=== PATIENT | male | born 1965 | race Caucasian/White ===

== ENCOUNTER 2024-07-06 10:53 | Emergency (ER) | payer OTHER, SELFPAY ==
[2024-07-06 10:56] VITALS: BP 165/90
[2024-07-06 12:00] VITALS: BP 129/87
[2024-07-06] MEDS: TORADOL 15 MG IV (12:03)
[2024-07-06 12:07] LABS: % Basophils 0.8 % (0-2); % Eosinophils 2.3 % (0-6); % Immature Granulocytes 1.3 % (0-0.5); % Monocytes 6.2 % (1.7-9.3); % Neutrophils 60.4 % (42.2-75.2); Absolute Eosinophils 0.1 10^3/uL (0-0.7); Absolute Immature Granulocytes 0.1 10^3/uL (0-0.05); Absolute Lymphocytes 1.1 10^3/uL (1.2-3.4); Absolute Monocytes 0.2 10^3/uL (0.1-0.6); Absolute Neutrophils 2.4 10^3/uL (1.4-6.5); Hematocrit 42.2 % (39.0-52.0); Hemoglobin 15.3 g/dL (13.0-18.0); Mean Corp Hgb Conc. 36.3 g/dL (33.0-37.0); Mean Corpuscular Hgb 29.9 pg (27.0-31.0); Mean Corpuscular Volume 82.4 fL (80.0-94.0); Mean Platelet Volume 9.1 fL (7.4-10.4); Nucleated Red Blood Cells % 0 % (-); Platelet Count 154 10^3/uL (130-400); Red Blood Cell Count 5.12 10^6/uL (4.70-6.10); Red Cell Dist. Width 11.9 % (11.5-14.5); White Blood Cell Count 3.9 10^3/uL (4.8-10.8)
[2024-07-06 12:24] LABS: ALT (SGPT) 30 U/L (0-50); AST (SGOT) 28 U/L (17-59); Alkaline Phosphatase 54 U/L (38-126); Blood Urea Nitrogen 14 mg/dl (9-20); Calcium 9.4 mg/dl (8.4-10.2); Carbon Dioxide 32 mmol/L (22-30); Chloride 104 mmol/L (98-107); Creatine Phosphokinase 54 U/L (55-170); Glucose 102 mg/dl (70-99); Potassium 4.3 mmol/L (3.5-5.1); Sodium 142 mmol/L (135-145); Total Bilirubin 0.8 mg/dl (0.2-1.3); Total Protein 7.1 g/dl (6.3-8.2); eGFR > 60.00
--- NOTE | 2024-07-06 12:28 | ED.GENMED ---
History of Present Illness
General
Chief Complaint: Flank Pain
Source: patient
Exam Limitations: none
Time Seen by Provider: 07/06/24 11:41
Nursing documentation reviewed up to this point in time: agreed with
History of Present Illness
History of Present Illness:
58-year-old male with no reported chronic medical issues, prior surgical history of appendectomy who presents to the emergency room for evaluation of flank pain. Of note: patient started with URI symptoms last week was diagnosed with COVID. He
took Paxlovid for 2 days and stopped due to side effects. He says that for the past week while he has been dealing with COVID he has been having flank pain. He reports aching pain right flank radiates towards the right lower abdomen. No clear
triggering or relieving factors. Associated with nausea no vomiting. He has been constipated. He denies fevers or chills. No dysuria or hematuria noted although he says that at his PCPs office today they checked his urine and told him he had
hematuria. He says that primary referred him to the ER due to flank pain with hematuria on office visit today.
Past History
Past History
ED Past Medical History: Hypothyroidism
ED Past Surgical History: Appendectomy
Social History
Tobacco: Non-smoker
Alcohol: None
Drug: None
Personal:
Living: with family
Review of Systems
Review of Systems
All Other Systems: ROS reviewed and negative except as documented in HPI and ROS
Constitutional: Denies fever
Respiratory: Denies trouble breathing
Cardiac: Denies chest pain
ABD/GI: Reports abdominal pain, nausea and constipated; Denies vomiting or diarrhea
: Reports flank pain; Denies dysuria or bleeding
Musculoskeletal: Denies neck pain
Neurological: Denies headache
Phy Exam
Physical Exam
Physical Exam:
General: Awake, alert; no acute distress
Head: Normocephalic, atraumatic
Eyes: Conjunctiva normal, sclera anicteric
Throat: Airway intact, handling secretions
Neck: Trachea midline, supple without meningismus
Lungs: Clear to auscultation bilaterally, no wheezing, rales, rhonchi
Heart: Regular rate and rhythm, no murmurs, gallops, or rubs
Abd: Soft, non distended, mildly tender right mid abdomen, no palpable masses
Back: No CVA tenderness
Neuro: No gross deficits
Skin: no rash in area of concern
Extremities: Warm and well-perfused, no edema
Scores
Heart Failure Risk
Heart Failure Risk Score: Not Applicable
Heart Score for Chest Pain Patients
STEMI patient?: Not applicable
Withdrawal Assessment of Alcohol
Withdrawal Assessment Completed?: Not applicable
Course
Orders/Labs/Results
Orders:
Orders
07/06/24 11:44
CT Abd/pel Without Iv Or Oral Urgent
Comment:
Reason For Exam: right flank pain
07/06/24 11:49
Ketorolac [Toradol] 15 mg IV NOW STA
07/06/24 12:00
CPK [Creatine Phosphokinase] Urgent
Complete Blood Count/With Diff Urgent
Comprehensive Metabolic Panel Urgent
07/06/24 12:35
Urinalysis Reflex To Culture Urgent
Date Specimen was Collected: 07/06/24
Time Specimen was Collected: 12:34
Urine Microscopic Reflex Cult Urgent
Abnormal Lab Results
07/06/24 07/06/24
12:00 12:35
WBC 3.9 L 10^3/uL
(4.8-10.8)
Abs Immat Gran (auto) 0.1 H 10^3/uL
(0-0.05)
Absolute Lymphs (auto) 1.1 L 10^3/uL
(1.2-3.4)
Immature Gran % 1.3 H %
(0-0.5)
Carbon Dioxide 32 H mmol/L
(22-30)
Glucose 102 H mg/dl
(70-99)
Creatine Kinase 54 L U/L
(55-170)
Ur Occult Blood Reflex 1+ A
(Negative)
07/06/24 12:00
07/06/24 12:00
Vital Signs
Initial and Last Documented VS:
Initial Vital Signs
Temp Pulse Resp BP Pulse Ox
36.9 C 68 18 165/90 99
07/06/24 10:56 07/06/24 10:56 07/06/24 10:56 07/06/24 10:56 07/06/24 10:56
Last Documented Vital Signs
Temp Pulse Resp BP Pulse Ox
36.9 C 68 18 165/90 99
07/06/24 10:56 07/06/24 10:56 07/06/24 10:56 07/06/24 10:56 07/06/24 10:56
MDM/Problems Addressed
Differential Diagnosis Includes:
Nephrolithiasis, rhabdomyolysis, myalgias related to viral illness, cholelithiasis, viral hepatitis
MDM/Problems Addressed:
58-year-old male currently in the midst of COVID infection for the past week presents for evaluation of right flank pain for the past week. Apparently had hematuria on urinalysis in the office today and was referred to the ER for assessment.
Hypertensive otherwise normal vitals. Physical exam as above. Suspect likely myalgias related to viral illness. With positive blood reported in [facility] today will check CPK. Check CMP, urinalysis. Check CT abdomen pelvis. Treat symptomatically.
Reassess after the above.
Labs reviewed: CBC shows mild leukopenia in the setting of viral illness. CMP no clinically significant abnormalities. CPK was not markedly elevated. Urinalysis trace blood on dipstick. CT abdomen pelvis no acute pathology to account for
symptoms. Suspect likely viral illness with myalgias accounts for his back/flank pain. Stable for discharge with supportive care. Follow-up with PCP regarding trace hematuria. Patient comfortable with this plan. All questions answered.
Acute Exacerbation and/or Progression of Chronic Illness:
Acutely hypertensive without signs or symptoms of hypertensive emergency�no indication for emergent antihypertensive treatment
Acute Exacerbation and/or Progression of Chronic Illness: HTN
*Radiology
Radiology exam reviewed: radiology read reviewed
*Pulse Oximetry
Patient hypoxic: no
*Critical Care Note
Total Time (30-74mins, 75-104mins- exclusive of procedures): Not Applicable
Data Reviewed
Review of Other/Old Records Reveals: Labs and Records
Source: patient
ED Attending Note
-
Portions of this chart may have been created with voice recognition software.� Occasional wrong word or��sound alike� substitutions may have occurred due to the inherent limitations of voice recognition software.
Discharge Plan
Departure
Patient Disposition: Home (Routine Discharge)
Date of Disposition: 07/06/24
Time of Disposition: 13:12
Patient with high blood pressure during this ER visit?: Yes
Discharge Problem:
Flank pain, Hematuria, microscopic
Instructions: Flank Pain (DC)
Prescriptions:
No Action
docusate sodium [Dulcolax Stool Softener (dss)] 100 MG capsule
100 mg PO DAILY PRN (Reason: constipation) Qty: 20 0RF
levothyroxine 112 MCG tablet
112 mcg PO DAILY
sucralfate 1 GM/10 ML suspension
1 gm PO QID Qty: 400 0RF
Rx Instructions:
1 hour before meals and bedtime
omeprazole 40 MG capsule,delayed release(DR/EC)
40 mg PO DAILY Qty: 30 0RF
Referrals:
Cheyenne Duarte MD [Family Provider] - Follow up in 5-7 days
Activity Restrictions/Additional Instructions:
Thank you for visiting the Emergency Department at [facility].
1. Please schedule a follow up appointment as directed. Call first thing tomorrow morning to make an appointment.
2. If indicated, please take your medications as instructed and indicated on discharge paperwork.
3. If any of your symptoms do not improve, or persist, or become more severe within 6-12 hours, please return to the emergency department for further care.
4. Please return to the emergency department if you develop a headache, neck pain/stiffness, fever greater than 100.4F, chest pain, shortness of breath, persistent nausea, vomiting, slurred speech, difficulty walking, numbness/tingling, weakness,
signs of infection or any other symptoms that are worrisome to you.
Please call [phone] if you have any questions.
Interventions
Interventions:
*Risk Screen - Suicide Last Done: 07/06/24 10:56
*General Assessment Last Done: 07/06/24 10:56
*Neglect/Abuse Screening Last Done: 07/06/24 10:56
*ED COVID-19 Vaccine History Last Done: 07/06/24 10:56
Discharge Date and Time
Print Language: LAO
[2024-07-06 12:47] LABS: Urine Albumin Negative (Neg - Trace); Urine Bilirubin Negative (Negative); Urine Character Clear (Clear); Urine Color Yellow; Urine Glucose Negative (Negative); Urine Ketone Negative (Negative); Urine Leukocyte Negative (Negative); Urine Nitrite Negative (Negative); Urine Occult Blood 1+ (Negative); Urine Specific Gravity 1.005 (<1.030); Urine Urobilinogen Negative (Neg - 1+)
[2024-07-06 13:17] LABS: Urine Bacteria Few (Negative); Urine Red Blood Cell 0-2 /HPF (0-2); Urine Squamous Cell 0-2 /LPF (Few); Urine White Cell 0-2 /HPF (0-5)
== END 2024-07-06 13:30 | disposition home or self-care (01) ==
LOC: EMR 10:53
PROVIDERS: EMERGENCY PHYSICIAN Emergency Medicine; FAMILY PHYSICIAN Family Medicine
DX: R10.9 Unspecified abdominal pain (principal); R31.29 Other microscopic hematuria; U07.1 COVID-19; K59.00 Constipation, unspecified; E03.9 Hypothyroidism, unspecified
CPT/HCPCS: 99284; 96374; 74176; 80053; 81003; 81015; 82550; 85025

== ENCOUNTER → 2024-07-20 12:34 | Outpatient (REF) | payer OTHER, SELFPAY | LOC: HWRAD 12:34 | PROVIDERS: ATTENDING PHYSICIAN Physician Assistant; FAMILY PHYSICIAN Family Medicine | DX: R10.13 Epigastric pain (principal) | CPT/HCPCS: 76700 ==

== ENCOUNTER 2024-08-19 06:18 | Day surgery (SDC) | payer OTHER, SELFPAY | END 2024-08-19 11:56 | disposition home or self-care (01) | LOC: GI 06:18 | PROVIDERS: ATTENDING PHYSICIAN Internal Medicine | DX: R10.84 Generalized abdominal pain (principal); K44.9 Diaphragmatic hernia without obstruction or gangrene; K22.2 Esophageal obstruction; K63.5 Polyp of colon | CPT/HCPCS: 45385; 45380; 43239; 88305; 88342 ==

== ENCOUNTER 2025-01-28 14:14 | Emergency (ER) | payer OTHER, SELFPAY ==
[2025-01-28 14:24] VITALS: BP 144/80
[2025-01-28 14:45] LABS: Hematocrit 43.4 % (39.0-52.0); Hemoglobin 15.3 g/dL (13.0-18.0); Mean Corp Hgb Conc. 35.3 g/dL (33.0-37.0); Mean Corpuscular Volume 84.1 fL (80.0-94.0); Nucleated Red Blood Cells % 0 % (-); Platelet Count 172 10^3/uL (130-400); Red Cell Dist. Width 12.3 % (11.5-14.5)
[2025-01-28 14:57] LABS: ALT (SGPT) 24 U/L (0-50); AST (SGOT) 23 U/L (17-59); Albumin 4.6 g/dl (3.5-5.0); Alkaline Phosphatase 37 U/L (38-126); Blood Urea Nitrogen 17 mg/dl (9-20); Calcium 9.0 mg/dl (8.4-10.2); Carbon Dioxide 32 mmol/L (22-30); Chloride 103 mmol/L (98-107); Glucose 102 mg/dl (70-99); Potassium 4.2 mmol/L (3.5-5.1); Sodium 140 mmol/L (135-145); Total Protein 7.5 g/dl (6.3-8.2); eGFR > 60.00
[2025-01-28 15:08] LABS: Troponin I < 0.012 ng/ml
[2025-01-28 15:56] VITALS: BP 125/71
[2025-01-28 16:00] VITALS: BP 128/68
[2025-01-28 16:26] VITALS: BMI 24.5
[2025-01-28 17:00] VITALS: BP 122/75
--- NOTE | 2025-01-28 17:48 | ED.GENMED ---
History of Present Illness
General
Chief Complaint: Chest Pain
Source: patient
Exam Limitations: none
Time Seen by Provider: 01/28/25 16:24
History of Present Illness
History of Present Illness:
59-year-old male presents complaining of intermittent chest comfort over the past several days. He is healthy otherwise. He is active. He is not a smoker. He describes it as a pressure over the center of his chest that does not radiate to the
neck or arms. No associated abdominal pain pain is not pleuritic nor is it made worse with eating. No recent travel or surgery. No known injury. No other complaints at this time
Past History
Past History
ED Past Medical History: Hypothyroidism
ED Past Surgical History: Appendectomy
Social History
Tobacco: Non-smoker
Alcohol: None
Drug: None
Personal:
Living: with family
Phy Exam
Physical Exam
Physical Exam:
General: Well-appearing male no acute respiratory distress
HEENT: Normal cephalic atraumatic
Heart: Regular rate and rhythm
Lungs: Clear no wheeze
Abdomen is soft nontender nondistended no guarding rebound
Extremities: No cyanosis or edema
SKin: warm, no rash
Scores
Heart Score for Chest Pain Patients
STEMI patient?: No
History: Slightly or Non-Suspicious
ECG: Normal
Age: >45 - <65 years
Risk Factors: No Risk Factors
Troponin: </= Normal Limit
Heart Score for Chest Pain Patients: 1
Heart Score Risk: 2.5% MACE over next 6 weeks
Course
Orders/Labs/Results
Orders:
Orders
01/28/25
Electrocardiogram (*1) Stat
Comment: DONE EMR
01/28/25 14:31
Complete Blood Count/With Diff Urgent
Comprehensive Metabolic Panel Urgent
Troponin I Urgent
01/28/25 16:37
CR Chest - 2 Views Urgent
Comment:
Reason For Exam: chest pain
Abnormal Lab Results
01/28/25
14:31
Immature Gran % 0.6 H %
(0-0.5)
Carbon Dioxide 32 H mmol/L
(22-30)
Glucose 102 H mg/dl
(70-99)
Alkaline Phosphatase 37 L U/L
(38-126)
01/28/25 14:31
01/28/25 14:31
Vital Signs
Initial and Last Documented VS:
Initial Vital Signs
Temp Pulse Resp BP Pulse Ox
98.0 F 64 16 144/80 98
01/28/25 14:24 01/28/25 14:24 01/28/25 14:24 01/28/25 14:24 01/28/25 14:24
Last Documented Vital Signs
Temp Pulse Resp BP Pulse Ox
98.0 F 61 17 122/75 99
01/28/25 14:24 01/28/25 17:00 01/28/25 17:00 01/28/25 17:00 01/28/25 16:45
MDM/Problems Addressed
Differential Diagnosis Includes:
Patient with intermittent chest discomfort and atypical in nature not exertional otherwise healthy no risk for PE stable vital signs. EKG shows sinus rhythm without ischemic changes. Troponin is undetectable. Chest x-ray is clear. Do not suspect
PE or dissection no evidence of pneumothorax do not suspect ACS. Patient is healthy otherwise. At this point nothing imminent going on but will have him follow-up with cardiology for chest pain hotline stable for discharge. Discussed with
emergency room attending
*Pulse Oximetry
SaO2: 99
Oxygen Mode of Delivery: Room air
Patient hypoxic: no
*Critical Care Note
Total Time (30-74mins, 75-104mins- exclusive of procedures): Not Applicable
ED Attending Note
-
Portions of this chart may have been created with voice recognition software.� Occasional wrong word or��sound alike� substitutions may have occurred due to the inherent limitations of voice recognition software.
Discharge Plan
Departure
Patient Disposition: Home (Routine Discharge)
Date of Disposition: 01/28/25
Time of Disposition: 17:54
Patient with high blood pressure during this ER visit?: No
Discharge Problem:
Chest pain
Instructions: Chest Pain CBC Follow Up
Prescriptions:
No Action
docusate sodium [Dulcolax Stool Softener (dss)] 100 MG capsule
100 mg PO DAILY PRN (Reason: constipation) Qty: 20 0RF
levothyroxine 112 MCG tablet
112 mcg PO DAILY
sucralfate 1 GM/10 ML suspension
1 gm PO QID Qty: 400 0RF
Rx Instructions:
1 hour before meals and bedtime
omeprazole 40 MG capsule,delayed release(DR/EC)
40 mg PO DAILY Qty: 30 0RF
Referrals:
Cheyenne Duarte MD [Family Provider, Family Practice]
Activity Restrictions/Additional Instructions:
Please return here for worsening symptoms otherwise follow-up with your doctor or cardiology
Interventions
Interventions:
*Risk Screen - Suicide Last Done: 01/28/25 14:24
*General Assessment Last Done: 01/28/25 16:26
*Neglect/Abuse Screening Last Done: 01/28/25 14:24
*ED- Fall Risk Assessment Last Done: 01/28/25 16:26
ED- Cardiac Assessment Last Done: 01/28/25 16:26
Discharge Date and Time
Print Language: GUYANESE
== END 2025-01-28 18:07 | disposition home or self-care (01) ==
LOC: EMR 14:14
PROVIDERS: Student in an Organized Health Care Education/Training Program; EMERGENCY PHYSICIAN Emergency Medicine; FAMILY PHYSICIAN Family Medicine
DX: R07.9 Chest pain, unspecified (principal); E03.9 Hypothyroidism, unspecified
CPT/HCPCS: 99284; 71046; 80053; 84484; 85025; 93005

== ENCOUNTER → 2025-02-01 15:55 | Outpatient (REF) | payer OTHER, SELFPAY ==
[2025-02-01 17:29] LABS: Amylase 85 U/L (30-110); Lipase 146 U/L (23-300)
== END ==
LOC: REG 15:55
PROVIDERS: ATTENDING PHYSICIAN Internal Medicine; FAMILY PHYSICIAN Family Medicine
DX: R10.9 Unspecified abdominal pain (principal)
CPT/HCPCS: 36415; 82150; 83690

== ENCOUNTER → 2025-02-10 07:07 | Outpatient (REF) | payer OTHER, SELFPAY | LOC: RAD 07:07 | PROVIDERS: ATTENDING PHYSICIAN Internal Medicine; FAMILY PHYSICIAN Family Medicine | DX: R07.9 Chest pain, unspecified (principal); R10.9 Unspecified abdominal pain | CPT/HCPCS: 74174; Q9967 ==

== ENCOUNTER → 2025-02-11 08:08 | Outpatient (REF) | payer OTHER, SELFPAY | LOC: RCS 08:08 | PROVIDERS: ATTENDING PHYSICIAN Internal Medicine; FAMILY PHYSICIAN Family Medicine | DX: R07.9 Chest pain, unspecified (principal) | CPT/HCPCS: 93017; 93320; 93325; 93350 ==